=== PATIENT | male | born 1990 | race Two or more races ===

== ENCOUNTER 2017-11-12 02:36 | Emergency (ER) | payer SELFPAY ==
[~2017-11-12] VITALS: Ht 175.3 cm; Wt 65.8 kg
[2017-11-12 02:44] VITALS: BP 117/72
--- NOTE | 2017-11-12 02:45 | Emergency Room Report ---
History of Present Illness General Chief Complaint: Alcohol Intoxication Source: EMS Present Illness HPI Is a 27-year-old male who presents with chief complaint of alcohol intoxication. He's been drinking heavily tonight. He call a taxi but they refuse take him because his so severely intoxicated. 911 was called. He had vomiting when he got here. No trauma. No other injury. Unable to get much of a history from him because of his intoxication. Allergies: Coded Allergies: UNABLE TO ASSESS (Unverified , 11/12/17) Patient History Past Medical History: see triage record, old chart reviewed Past Surgical History: none Pertinent Family History: none Social History: Reports: alcohol use Immunizations: other Reviewed Nursing Documentation: PMH: Agreed; PSxH: Agreed Review of Systems All Other Systems: limited - secondary to intoxication Physical Exam Sp02 EP Interpretation: reviewed, normal General Appearance: well appearing, no apparent distress, other - very intoxicated Head: normocephalic, atraumatic Eyes: bilateral eye PERRL, bilateral eye EOMI ENT: hearing grossly normal, normal pharynx Neck: full range of motion, supple, no meningismus Respiratory: chest non-tender, lungs clear, normal breath sounds Cardiovascular #1: regular rate, rhythm, no murmur Gastrointestinal: normal bowel sounds, non tender, no mass, no organomegaly, no bruit, non-distended Musculoskeletal: back normal, normal range of motion Neurologic: grossly normal Psychiatric: mood/affect normal Skin: warm/dry Medical Decision Making Diagnostic Impression: Primary Impression: Acute alcoholic intoxication Qualified Codes: F10.929 - Alcohol use, unspecified with intoxication, unspecified ER Course Patient with alcohol intoxication. We will observe until clinical sobriety. I see no trauma to warrant CT scan. Status: improved Disposition: HOME, SELF-CARE Condition: Stable Patient Instructions: Alcohol Intoxication, Bypo-af-Cems Additional Instructions: Abstain from drinking to excess. Follow-up with your doctor in 7 days. Return if worse. TAM HUANG M.D. Nov 12, 2017 02:45
[2017-11-12 06:01] VITALS: BP 128/78
[2017-11-12 06:03] VITALS: BP 128/78
== END 2017-11-12 05:31 | disposition home or self-care (01) ==
LOC: EDBD 02:36 → EMR 02:51
DX: F10.929 Alcohol use, unspecified with intoxication, unspecified (principal)
CPT/HCPCS: 99283